=== PATIENT | female | born 1955 | race Caucasian/White ===

== ENCOUNTER 2017-03-11 07:35 | Outpatient (CLI) | payer OTHER ==
[~2017-03-11 07:35] MED LIST: CIPRO500 MG PO; DIOVAN320 MG PO; ULTRAM50 MG PO; URIN D.S. TABL1 EACH PO
== END 2017-03-11 08:46 | disposition home or self-care (01) ==
LOC: SONOGRAMA 07:35
DX: E03.4 Atrophy of thyroid (acquired) (principal)

== ENCOUNTER 2017-03-28 11:53 | Outpatient (CLI) | payer OTHER | END 2017-03-28 17:04 | disposition home or self-care (01) | LOC: MAMO-SONO 11:53 | DX: N60.11 Diffuse cystic mastopathy of right breast (principal); N60.12 Diffuse cystic mastopathy of left breast ==

== ENCOUNTER → 2017-06-16 | Outpatient (CLI) | payer OTHER | END | disposition home or self-care (01) | LOC: TOM 09:30 | DX: N20.0 Calculus of kidney (principal) ==

== ENCOUNTER 2017-06-28 05:10 | Day surgery (SDC) | payer OTHER ==
[2017-06-28] MEDS ORDERED: ULTRACET PO (09:51)
[2017-06-28] MEDS ORDERED: KEFLEX500 MG PO (09:51)
[2017-06-28] MEDS ORDERED: PYRIDIUM100 M1 PO (09:52)
== END 2017-06-28 12:35 | disposition home or self-care (01) ==
LOC: CIR.AMB 05:10
DX: N13.2 Hydronephrosis with renal and ureteral calculous obstruction (principal)

== ENCOUNTER 2017-12-07 08:46 | Outpatient (CLI) | payer OTHER ==
[~2017-12-07 08:46] MED LIST changes: +KEFLEX500 MG PO; +PYRIDIUM100 M1 PO; +ULTRACET PO
== END 2017-12-07 08:54 | disposition home or self-care (01) ==
LOC: NUCLEAR 08:46
DX: I82.401 Acute embolism and thrombosis of unspecified deep veins of right lower extremity (principal); I82.402 Acute embolism and thrombosis of unspecified deep veins of left lower extremity

== ENCOUNTER 2018-03-22 08:51 | Outpatient (CLI) | payer OTHER | END 2018-03-22 15:46 | disposition home or self-care (01) | LOC: MRI 08:51 | DX: S83.92XA Sprain of unspecified site of left knee, initial encounter (principal); M25.462 Effusion, left knee | CPT/HCPCS: 73721 ==

== ENCOUNTER 2018-05-12 08:28 | Outpatient (CLI) | payer OTHER | END 2018-05-12 08:42 | disposition home or self-care (01) | LOC: MAMO-SONO 08:28 | DX: N60.11 Diffuse cystic mastopathy of right breast (principal); N60.12 Diffuse cystic mastopathy of left breast; Z12.31 Encounter for screening mammogram for malignant neoplasm of breast; E78.89 Other lipoprotein metabolism disorders; Z01.810 Encounter for preprocedural cardiovascular examination; I11.9 Hypertensive heart disease without heart failure; M54.5 Low back pain; E03.8 Other specified hypothyroidism; E66.8 Other obesity; I10 Essential (primary) hypertension ==

== ENCOUNTER → 2018-05-30 | Outpatient (CLI) | payer OTHER | END | disposition home or self-care (01) | LOC: RAD 501 09:00 | DX: N20.0 Calculus of kidney (principal) ==

== ENCOUNTER 2018-06-01 07:29 | Outpatient (CLI) | payer OTHER | END 2018-06-01 07:31 | disposition home or self-care (01) | LOC: SONOGRAMA 07:29 | DX: E04.2 Nontoxic multinodular goiter (principal) ==

== ENCOUNTER 2018-08-14 09:12 | Outpatient (CLI) | payer OTHER | END 2018-08-14 09:21 | disposition home or self-care (01) | LOC: RAD 09:12 | DX: Z01.818 Encounter for other preprocedural examination (principal) ==

== ENCOUNTER → 2018-12-14 | Outpatient (CLI) | payer OTHER | END | disposition home or self-care (01) | LOC: NUCLEAR 09:00 | DX: I11.9 Hypertensive heart disease without heart failure (principal); I65.29 Occlusion and stenosis of unspecified carotid artery; C73 Malignant neoplasm of thyroid gland ==

== ENCOUNTER → 2019-02-17 | Emergency (ER) | payer OTHER ==
[~2019-02-17] VITALS: Ht 170.2 cm; Wt 99.8 kg
[~2019-02-17] MED LIST changes: +ATACAND HCT 161 EACH; +ATACAND16 MG PO; +KETO10TA2
== END | disposition left against medical advice (07) ==
LOC: ER 09:55
DX: Z53.20 Procedure and treatment not carried out because of patient's decision for unspecified reasons (principal)

== ENCOUNTER 2019-02-19 09:28 | Inpatient (IN) | payer OTHER ==
[~2019-02-19] VITALS: Ht 170.2 cm; Wt 98.0 kg
[~2019-02-19 09:28] MED LIST changes: -ATACAND16 MG PO
[2019-02-21] MEDS ORDERED: ATACAND16 MG PO (09:32)
[2019-02-21] MEDS ORDERED: CIPRO500 MG PO (09:32)
== END 2019-02-21 10:12 | disposition home or self-care (01) | DRG 661 ==
LOC: ER 09:28 → SURH 18:58
PROVIDERS: Urology; ADMIT Internal Medicine
PROC: BW21ZZZ Computerized Tomography (CT Scan) of Abdomen and Pelvis (ICD-10-PCS; 2019-02-19)
PROC: 0TC78ZZ Extirpation of Matter from Left Ureter, Via Natural or Artificial Opening Endoscopic (ICD-10-PCS; 2019-02-20)
PROC: 0T778DZ Dilation of Left Ureter with Intraluminal Device, Via Natural or Artificial Opening Endoscopic (ICD-10-PCS; principal; 2019-02-20 07:15)
DX: N13.2 Hydronephrosis with renal and ureteral calculous obstruction (principal); E66.01 Morbid (severe) obesity due to excess calories; K57.30 Diverticulosis of large intestine without perforation or abscess without bleeding; N28.1 Cyst of kidney, acquired; I10 Essential (primary) hypertension

== ENCOUNTER → 2019-02-28 | Outpatient (CLI) | payer OTHER ==
[~2019-02-28] MED LIST changes: +ATACAND16 MG PO
== END | disposition home or self-care (01) ==
LOC: LAB 11:30
DX: N30.00 Acute cystitis without hematuria (principal)

== ENCOUNTER → 2019-02-28 | Outpatient (CLI) | payer OTHER | END | disposition home or self-care (01) | LOC: RAD 10:27 | DX: N20.1 Calculus of ureter (principal) ==

== ENCOUNTER 2019-03-01 14:27 | Outpatient (CLI) | payer OTHER | END 2019-03-01 14:29 | disposition home or self-care (01) | LOC: SONOGRAMA 14:27 | DX: N13.2 Hydronephrosis with renal and ureteral calculous obstruction (principal) ==

== ENCOUNTER 2019-06-28 03:28 | Emergency (ER) | payer OTHER ==
[~2019-06-28] VITALS: Ht 170.2 cm; Wt 98.4 kg
[2019-06-28] MEDS ORDERED: SYNTHROID112 MCG PO (03:42)
[2019-07-03] MEDS ORDERED: HYDROCHLOROTH12.5 MG PO (12:37)
[2019-07-03] MEDS ORDERED: PYRIDIUM DS200 MG PO (12:38)
[2019-07-03] MEDS ORDERED: NITROFURANTOIN100 MG PO (12:39)
== END 2019-06-28 07:59 ==
LOC: ER 03:28
DX: N39.0 Urinary tract infection, site not specified (principal); R10.32 Left lower quadrant pain

== ENCOUNTER 2019-07-04 10:00 | Day surgery (SDC) | payer OTHER ==
[~2019-07-04 10:00] MED LIST changes: +HYDROCHLOROTH12.5 MG PO; +NITROFURANTOIN100 MG PO; +PYRIDIUM DS200 MG PO; +SYNTHROID112 MCG PO
== END 2019-07-04 19:30 | disposition home or self-care (01) ==
LOC: CIR.AMB 10:00
DX: N20.1 Calculus of ureter (principal)

== ENCOUNTER → 2019-07-12 10:16 | Outpatient (CLI) | payer OTHER | END | disposition home or self-care (01) | LOC: RAD 10:16 → LAB 10:16 | DX: N20.1 Calculus of ureter (principal) ==

== ENCOUNTER 2019-07-20 07:13 | Outpatient (CLI) | payer OTHER | END 2019-07-20 07:14 | disposition home or self-care (01) | LOC: RAD 07:13 | PROVIDERS: ATTEND Urology | DX: N20.1 Calculus of ureter (principal) ==

== ENCOUNTER 2019-10-19 09:38 | Outpatient (CLI) | payer OTHER | END 2019-10-19 09:40 | disposition home or self-care (01) | LOC: TOM 09:38 | DX: R91.1 Solitary pulmonary nodule (principal) ==

== ENCOUNTER 2020-01-23 09:55 | Outpatient (CLI) | payer OTHER | END 2020-01-23 10:05 | disposition home or self-care (01) | LOC: MAMO-SONO 09:55 | PROVIDERS: ATTEND Internal Medicine | DX: R92.0 Mammographic microcalcification found on diagnostic imaging of breast (principal); Z12.31 Encounter for screening mammogram for malignant neoplasm of breast; I11.9 Hypertensive heart disease without heart failure; E03.8 Other specified hypothyroidism; M54.5 Low back pain; E66.8 Other obesity; E78.89 Other lipoprotein metabolism disorders; I65.29 Occlusion and stenosis of unspecified carotid artery; E55.9 Vitamin D deficiency, unspecified; C73 Malignant neoplasm of thyroid gland ==

== ENCOUNTER 2021-01-05 14:09 | Outpatient (CLI) | payer OTHER | END 2021-01-05 14:10 | disposition home or self-care (01) | LOC: NUCLEAR 14:09 | PROVIDERS: ATTEND Internal Medicine | DX: M81.0 Age-related osteoporosis without current pathological fracture (principal) ==

== ENCOUNTER 2021-01-26 10:42 | Outpatient (CLI) | payer OTHER | END 2021-01-26 11:06 | disposition home or self-care (01) | LOC: MAMO-SONO 10:42 | PROVIDERS: ATTEND Emergency Medicine Pediatric Emergency Medicine | DX: R92.1 Mammographic calcification found on diagnostic imaging of breast (principal); N60.11 Diffuse cystic mastopathy of right breast; N60.12 Diffuse cystic mastopathy of left breast; Z12.31 Encounter for screening mammogram for malignant neoplasm of breast; E03.8 Other specified hypothyroidism; E66.8 Other obesity; I10 Essential (primary) hypertension; M54.59 Other low back pain; E55.9 Vitamin D deficiency, unspecified; N20.1 Calculus of ureter ==

== ENCOUNTER 2022-01-06 07:07 | Outpatient (CLI) | payer OTHER | END 2022-01-06 07:08 | disposition home or self-care (01) | LOC: NUCLEAR 07:07 | PROVIDERS: ATTEND Internal Medicine Rheumatology | DX: M13.0 Polyarthritis, unspecified (principal); Z88.2 Allergy status to sulfonamides; Z88.5 Allergy status to narcotic agent; Z88.6 Allergy status to analgesic agent | CPT/HCPCS: 78315; A9503 ==

== ENCOUNTER 2022-01-08 13:41 | Outpatient (CLI) | payer OTHER | END 2022-01-08 13:44 | disposition home or self-care (01) | LOC: TOM 13:41 | PROVIDERS: ATTEND Urology | DX: N20.1 Calculus of ureter (principal) ==

== ENCOUNTER 2022-01-12 08:21 | Outpatient (CLI) | payer OTHER | END 2022-01-12 08:26 | disposition home or self-care (01) | LOC: RAD 08:21 | PROVIDERS: ATTEND Urology | DX: N20.0 Calculus of kidney (principal); I11.9 Hypertensive heart disease without heart failure ==

== ENCOUNTER 2022-01-20 04:53 | Day surgery (SDC) | payer OTHER | END 2022-01-20 11:50 | disposition home or self-care (01) | LOC: CIR.AMB 04:53 | PROVIDERS: ATTEND Urology | DX: N20.1 Calculus of ureter (principal); I10 Essential (primary) hypertension; Z88.2 Allergy status to sulfonamides; Z88.5 Allergy status to narcotic agent; Z88.6 Allergy status to analgesic agent; Z20.822 Contact with and (suspected) exposure to COVID-19; Z86.16 Personal history of COVID-19 ==

== ENCOUNTER → 2022-03-10 | Day surgery (SDC) | payer OTHER | END | disposition home or self-care (01) | LOC: CIR.AMB 07:20 | PROVIDERS: ATTEND Urology | DX: N20.1 Calculus of ureter (principal); Z88.2 Allergy status to sulfonamides; E66.9 Obesity, unspecified; R10.9 Unspecified abdominal pain; I10 Essential (primary) hypertension ==

== ENCOUNTER 2022-08-05 09:24 | Outpatient (CLI) | payer OTHER | END 2022-08-05 09:31 | disposition home or self-care (01) | LOC: MAMO-SONO 09:24 | PROVIDERS: ATTEND Internal Medicine | DX: N60.11 Diffuse cystic mastopathy of right breast (principal) ==

== ENCOUNTER 2023-03-22 09:45 | Outpatient (CLI) | payer OTHER | END 2023-03-22 10:06 | disposition home or self-care (01) | LOC: TOM 09:45 | PROVIDERS: ATTEND Urology | DX: N20.0 Calculus of kidney (principal) ==

== ENCOUNTER → 2023-03-31 | Outpatient (CLI) | payer OTHER | END | disposition home or self-care (01) | LOC: TOM 09:40 | PROVIDERS: ATTEND Ophthalmology | DX: J32.9 Chronic sinusitis, unspecified (principal); H04.552 Acquired stenosis of left nasolacrimal duct ==

== ENCOUNTER 2023-05-26 08:45 | Outpatient (CLI) | payer OTHER | END 2023-05-26 08:50 | disposition home or self-care (01) | LOC: RAD 08:45 | PROVIDERS: ATTEND Urology | DX: N20.0 Calculus of kidney (principal); N20.1 Calculus of ureter ==

== ENCOUNTER 2023-08-11 10:24 | Outpatient (CLI) | payer OTHER | END 2023-08-11 10:30 | disposition home or self-care (01) | LOC: MAMO-SONO 10:24 | PROVIDERS: ATTEND Urology | DX: N60.11 Diffuse cystic mastopathy of right breast (principal); N60.12 Diffuse cystic mastopathy of left breast; N20.0 Calculus of kidney; Z12.31 Encounter for screening mammogram for malignant neoplasm of breast ==

== ENCOUNTER 2023-09-26 09:47 | Outpatient (CLI) | payer OTHER | END 2023-09-26 09:59 | disposition home or self-care (01) | LOC: TOM 09:47 | PROVIDERS: ATTEND Urology | DX: N20.0 Calculus of kidney (principal) ==

== ENCOUNTER → 2024-01-23 | Outpatient (CLI) | payer OTHER | END | disposition home or self-care (01) | LOC: SONOGRAMA 10-14 12:56 → MAMO-SONO 10-17 11:45 → TOM 09:27 | DX: K43.2 Incisional hernia without obstruction or gangrene (principal); N13.2 Hydronephrosis with renal and ureteral calculous obstruction ==

== ENCOUNTER 2024-03-15 09:28 | Outpatient (CLI) | payer OTHER | END 2024-03-15 09:34 | disposition home or self-care (01) | LOC: RAD 09:28 | PROVIDERS: ATTEND Urology | DX: N20.0 Calculus of kidney (principal); N20.1 Calculus of ureter ==

== ENCOUNTER 2024-06-14 10:08 | Outpatient (CLI) | payer OTHER | END 2024-06-14 10:10 | disposition home or self-care (01) | LOC: RAD 10:08 | PROVIDERS: ATTEND Urology | DX: N20.0 Calculus of kidney (principal) ==

== ENCOUNTER 2024-08-14 09:49 | Outpatient (CLI) | payer OTHER | END 2024-08-14 09:57 | disposition home or self-care (01) | LOC: MAMO-SONO 09:49 | PROVIDERS: ATTEND Internal Medicine | DX: N63.0 Unspecified lump in unspecified breast (principal); N64.4 Mastodynia; Z68.31 Body mass index [BMI] 31.0-31.9, adult; N60.11 Diffuse cystic mastopathy of right breast; N60.12 Diffuse cystic mastopathy of left breast; R91.1 Solitary pulmonary nodule; S37.10XA Unspecified injury of ureter, initial encounter; C73 Malignant neoplasm of thyroid gland; E55.9 Vitamin D deficiency, unspecified; I11.9 Hypertensive heart disease without heart failure; E78.9 Disorder of lipoprotein metabolism, unspecified; E03.9 Hypothyroidism, unspecified; Z12.11 Encounter for screening for malignant neoplasm of colon; Z13.820 Encounter for screening for osteoporosis; Z12.31 Encounter for screening mammogram for malignant neoplasm of breast ==

== ENCOUNTER 2024-08-16 07:55 | Outpatient (CLI) | payer OTHER | END 2024-08-16 07:56 | disposition home or self-care (01) | LOC: NUCLEAR 07:55 | PROVIDERS: ATTEND Internal Medicine | DX: M81.0 Age-related osteoporosis without current pathological fracture (principal) ==

== ENCOUNTER 2024-12-07 10:21 | Outpatient (CLI) | payer OTHER | END 2024-12-07 10:23 | disposition home or self-care (01) | LOC: SONOGRAMA 10:21 | PROVIDERS: ATTEND Urology | DX: N20.1 Calculus of ureter (principal) ==